=== PATIENT | female | born 1975 | race African-American/Black ===

== ENCOUNTER 2020-12-31 14:11 | Emergency (ER) | payer OTHER, MEDICARE ==
[2020-12-31] MEDS ORDERED: Ibuprofen 600 MG TAB ONE (16:32)
== END 2020-12-31 16:35 | disposition home or self-care (01) ==
LOC: MADERS 14:11
DX: S29.012A Strain of muscle and tendon of back wall of thorax, initial encounter (principal); S20.212A Contusion of left front wall of thorax, initial encounter; E07.9 Disorder of thyroid, unspecified; E11.9 Type 2 diabetes mellitus without complications; V43.62XA Car passenger injured in collision with other type car in traffic accident, initial encounter
CPT/HCPCS: 71260